=== PATIENT | male | born 1945 | race Caucasian/White ===

== ENCOUNTER 2020-04-06 11:08 | Emergency (ER) | payer OTHER, MEDICARE, SELFPAY ==
[2020-04-06 11:08] VITALS: BP 153/83; PULSE 92; RESP 20; TEMP 36.9; O2SAT 96; BMI 30.9
[2020-04-06 11:24] VITALS: BP 174/92; PULSE 91; RESP 18; O2SAT 96
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
[2020-04-06] MEDS: Morphine 4 MG/ML Syringe IM (11:29)
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
[2020-04-06] MEDS: Acetaminophen 500 MG Tablet 1000 MG PO (13:34)
[2020-04-06] MEDS: Ibuprofen 200 MG Tablet 400 MG PO (13:35)
[2020-04-06 13:40] VITALS: RESP 16
[2020-04-06 13:42] VITALS: BP 168/89; PULSE 79; RESP 18; O2SAT 96
== END 2020-04-06 15:41 | disposition home or self-care (01) ==
PROVIDERS: Emergency Provider Emergency Medicine; PCP Family Medicine
DX: S16.1XXA Strain of muscle, fascia and tendon at neck level, initial encounter (principal); S60.512A Abrasion of left hand, initial encounter; V49.49XA Driver injured in collision with other motor vehicles in traffic accident, initial encounter; Y93.9 Activity, unspecified; Y92.9 Unspecified place or not applicable; I10 Essential (primary) hypertension; E03.9 Hypothyroidism, unspecified; E11.9 Type 2 diabetes mellitus without complications; E78.5 Hyperlipidemia, unspecified; N40.0 Benign prostatic hyperplasia without lower urinary tract symptoms; Z79.84 Long term (current) use of oral hypoglycemic drugs; Z79.899 Other long term (current) drug therapy
CPT/HCPCS: 70450; 72125; 96372; 99285